=== PATIENT | male | born 1975 | race Two or more races ===

== ENCOUNTER 2020-07-18 07:40 | Emergency (ER) | payer MEDICAID ==
[~2020-07-18] VITALS: Ht 170.2 cm; Wt 109.1 kg
[2020-07-18] MEDS ORDERED: ACETAMINOPHEN/CODEINE 300-30 MG TABLET PO ONE (08:00)
[2020-07-18] MEDS ORDERED: IBUPROFEN 600 MG TABLET PO ONE (08:00)
[2020-07-18 09:53] VITALS: BP 157/70
== END 2020-07-18 09:54 | disposition home or self-care (01) ==
LOC: EMS 07:40
DX: L03.031 Cellulitis of right toe (principal); B35.3 Tinea pedis
CPT/HCPCS: 99283

== ENCOUNTER 2020-07-21 19:07 | Emergency (ER) | payer MEDICAID ==
[~2020-07-21] VITALS: Ht 170.2 cm; Wt 104.5 kg
[2020-07-21] MEDS ORDERED: IBUP-2759 PO (19:16)
[2020-07-21] MEDS ORDERED: ACET-3560 PO (19:16)
[2020-07-21 19:43] VITALS: BP 126/77
== END 2020-07-21 20:22 | disposition home or self-care (01) ==
LOC: EMS 19:08
DX: L03.031 Cellulitis of right toe (principal)
CPT/HCPCS: 99281; 99282; 99283

== ENCOUNTER 2020-07-25 17:33 | Emergency (ER) | payer MEDICAID ==
[~2020-07-25] VITALS: Ht 177.8 cm; Wt 100.0 kg
[~2020-07-25 17:33] MED LIST: ACET-3560 PO; IBUP-2759 PO
[2020-07-25 20:09] LABS: BASOPHILS % (AUTO) 0.5 % (0.0-2.0); EOSINOPHILS % (AUTO) 3.3 % (1.0-6.0); HEMATOCRIT 46.1 % (41-53); HEMOGLOBIN 15.4 g/dL (13.5-17.5); LYMPHOCYTES # (AUTO) 1.8 K/uL (1.0-4.8); LYMPHOCYTES % (AUTO) 33.2 % (22.0-44.0); MEAN CORPUSCULAR HGB CONC 33.4 G/dL (31.0-37.0); MEAN CORPUSCULAR VOLUME 93 fL (80-100); MONOCYTES # (AUTO) 0.5 K/uL (0.1-1.0); MONOCYTES % (AUTO) 9.3 % (2.0-9.0); NEUTROPHILS # (AUTO) 2.8 K/uL (1.8-7.7); NEUTROPHILS % (AUTO) 53.7 % (40.0-70.0); PLATELET COUNT (AUTO) 190 K/uL (150-450); RED BLOOD CELL COUNT(AUTO) 4.97 MIL/uL (4.50-5.90); RED CELL DISTRIBUTION WIDTH 13.6 % (11.5-14.5)
[2020-07-25 20:19] LABS: ANION GAP 7 mmol/L (8-16); CALCIUM, TOTAL 8.9 mg/dL (8.8-10.5); CARBON DIOXIDE 28 mmol/L (22-29); CHLORIDE 103 mmol/L (98-107); CREATININE 0.99 mg/dL (0.60-1.30); GLOMERULAR FILTR. RATE CALC > 60 mL/min (>60); GLUCOSE,RANDOM 112 mg/dL (70-110); POTASSIUM 3.8 mmol/L (3.5-5.1); SODIUM SERUM 138 mmol/L (136-145); UREA NITROGEN, BLOOD 18 mg/dL (7-18)
[2020-07-25 20:28] LABS: ALANINE AMINOTRANSFERASE 71 U/L (12-78); ALKALINE PHOSPHATASE 104 U/L (46-116); ASPARTATE AMINOTRANSFERASE 37 U/L (15-37); BILIRUBIN,TOTAL 0.5 mg/dL (0.1-1.0); TOTAL PROTEIN, SERUM 7.6 g/dL (6.4-8.2)
[2020-07-25 21:53] LABS: ERYTHROCYTE SEDIMENTATION RATE 10 MM/HR (0-15)
[2020-07-25 23:46] VITALS: BP 122/66
== END 2020-07-25 23:47 | disposition home or self-care (01) ==
LOC: EMS 17:37
DX: L03.031 Cellulitis of right toe (principal)
CPT/HCPCS: 80053; 85025; 85651; 93925; 99284